=== PATIENT | male | born 1960 | race Caucasian/White ===

== ENCOUNTER → 2016-06-26 | Outpatient (CLI) | payer BC ==
--- NOTE | 2016-06-26 15:11 | CR ---
EXAMINATION: Two-view chest (PA and Lateral views). HISTORY: Cough. FINDINGS: The trachea is midline. The cardiomediastinal silhouette is within normal limits. No pulmonary infil trates, effusions or pneumothorax. Osseous structures appear unremarkable. IMPRESSION: No acute cardiopulmonary process.
== END ==
LOC: MW.CHFP 14:33
PROVIDERS: ATTEND Physician Assistant
DX: R05 Cough (principal)
CPT/HCPCS: 36415; 71020; 71020-26; 85025

== ENCOUNTER 2021-10-07 09:29 | Day surgery (SDC) | payer BC ==
[~2021-10-07 09:29] MED LIST: Lactated Ringers 1,000 ML IV SCH; ceFAZolin 2 GM in Premix Bag 1 BAG IV ONE
[2021-10-07] MEDS ORDERED: Propofol 200 MG/20 ML SDV ONE (09:37)
[2021-10-07] MEDS ORDERED: fentaNYL 250 MCG/5 ML SDV ONE (09:37)
[2021-10-07] MEDS ORDERED: Bupivacaine 0.5% 10 ML SDV ONE (09:47)
[2021-10-07] MEDS ORDERED: Ropivacaine 0.5% 5 MG/ML 30 ML SDV ONE (10:00)
[2021-10-07] MEDS ORDERED: fentaNYL 50 MCG/ML SDV IVPUSH PRN (10:14)
[2021-10-07] MEDS ORDERED: Naloxone 0.4 MG/ML SDV IVPUSH PRN (10:14)
[2021-10-07] MEDS ORDERED: HYDROmorphone 1 MG/ML Syringe IVPUSH PRN (10:14)
[2021-10-07] MEDS ORDERED: Albuterol 0.083% 2.5 MG/3 ML Neb Soln NEB PRN (10:14)
[2021-10-07] MEDS ORDERED: Ondansetron 4 MG/2 ML SDV IVPUSH PRN ×2 (10:14→11:57)
[2021-10-07] MEDS ORDERED: Metoclopramide 10 MG/2 ML SDV IVPUSH PRN (10:14)
[2021-10-07] MEDS ORDERED: ceFAZolin 1 GM Vial ONE (11:16)
[2021-10-07] MEDS ORDERED: Morphine 4 MG/ML VIAL IVPUSH PRN (11:57)
[2021-10-07] MEDS ORDERED: Acetaminophen/HYDROcodone 325-5 MG Tab PO PRN (11:57)
[2021-10-07] MEDS ORDERED: Lactated Ringers 1,000 ML IV SCH (12:00)
[2021-10-07] MEDS ORDERED: Glycopyrrolate 0.2 MG/ML SDV ONE (12:27)
[2021-10-07] MEDS ORDERED: Rocuronium 100 MG/10 ML MDV ONE (12:27)
[2021-10-07] MEDS ORDERED: ePHEDrine 50 MG/ML SDV ONE (12:27)
[2021-10-07] MEDS ORDERED: Sugammadex Sodium 200 MG/2 ML VIAL ONE (12:27)
[2021-10-07] MEDS ORDERED: Dexamethasone 4 MG/ML 5 ML MDV ONE (12:27)
[2021-10-07] MEDS ORDERED: Ketorolac 30 MG/ML SDV ONE (12:27)
[2021-10-07] MEDS ORDERED: Ondansetron 4 MG/2 ML SDV ONE (12:27)
[2021-10-07] MEDS ORDERED: Lidocaine 2% Jelly 30 ML Tube ONE (12:28)
[2021-10-07 13:03] VITALS: BP 143/80; PULSE 56
== END 2021-10-07 13:10 | disposition home or self-care (01) ==
LOC: MW.SDS 09:29
PROVIDERS: ATTEND Surgery
DX: K43.0 Incisional hernia with obstruction, without gangrene (principal); E66.9 Obesity, unspecified; Z90.49 Acquired absence of other specified parts of digestive tract; Z93.3 Colostomy status; Z79.899 Other long term (current) drug therapy; Z72.89 Other problems related to lifestyle; Z98.890 Other specified postprocedural states; Z80.0 Family history of malignant neoplasm of digestive organs; Z87.19 Personal history of other diseases of the digestive system; Z68.37 Body mass index [BMI] 37.0-37.9, adult
CPT/HCPCS: J0131; J0690; J1100; J1885; J2405; J2704; J2795; J3010; J3490; J7120

== ENCOUNTER 2022-07-21 08:03 | Day surgery (SDC) | payer BC ==
[~2022-07-21 08:03] MED LIST changes: +Dexmedetomidine 200 MCG/2 ML SDV ONE; +Propofol 200 MG/20 ML SDV ONE; +Water For Injection, Sterile 20 ML ONE; -ceFAZolin 2 GM in Premix Bag 1 BAG IV ONE
[2022-07-21] MEDS ORDERED: Propofol 200 MG/20 ML SDV ONE (09:54)
[2022-07-21] MEDS ORDERED: Lactated Ringers 1,000 ML IV SCH (10:15)
[2022-07-21 10:39] VITALS: BP 131/70; PULSE 57
== END 2022-07-21 10:46 | disposition home or self-care (01) ==
LOC: MW.SDS 08:03
PROVIDERS: ATTEND Surgery
DX: Z12.11 Encounter for screening for malignant neoplasm of colon (principal); K44.9 Diaphragmatic hernia without obstruction or gangrene; K29.00 Acute gastritis without bleeding; K29.50 Unspecified chronic gastritis without bleeding; K20.90 Esophagitis, unspecified without bleeding; K57.80 Diverticulitis of intestine, part unspecified, with perforation and abscess without bleeding; K57.30 Diverticulosis of large intestine without perforation or abscess without bleeding; E78.00 Pure hypercholesterolemia, unspecified; Z79.899 Other long term (current) drug therapy; Z90.49 Acquired absence of other specified parts of digestive tract; Z90.79 Acquired absence of other genital organ(s); Z87.891 Personal history of nicotine dependence; Z93.3 Colostomy status; Z98.890 Other specified postprocedural states; Z80.0 Family history of malignant neoplasm of digestive organs; Z78.9 Other specified health status; E66.9 Obesity, unspecified; Z68.30 Body mass index [BMI] 30.0-30.9, adult; K64.8 Other hemorrhoids
CPT/HCPCS: 43239; 45378; J2704; J7120; 00813; J3490

== ENCOUNTER 2024-05-18 11:20 | Emergency (ER) | payer BC ==
[2024-05-18 12:55] VITALS: BP 146/72; PULSE 88
[2024-05-18] MEDS: Acetaminophen 500 MG Tab PO ONE (13:22)
[2024-05-18] MEDS: Ibuprofen 800 MG Tab PO ONE (13:22)
== END 2024-05-18 15:01 | disposition home or self-care (01) ==
LOC: MW.ED 11:20
DX: J18.9 Pneumonia, unspecified organism (principal); E78.00 Pure hypercholesterolemia, unspecified; I10 Essential (primary) hypertension; Z75.8 Other problems related to medical facilities and other health care; Z79.899 Other long term (current) drug therapy
CPT/HCPCS: 71046; 87428; 99283; A9270